=== PATIENT | male | born 1985 | race Caucasian/White ===

== ENCOUNTER 2017-01-04 21:26 | Emergency (ER) | END 2017-01-05 00:18 | disposition home or self-care (01) | DX: J02.9 Acute pharyngitis, unspecified (principal); R10.31 Right lower quadrant pain; R11.2 Nausea with vomiting, unspecified | CPT/HCPCS: 36415; 74177; 80053; 81001; 83690; 85025; 87880; 96374; 96375; 99285; J1885; J2270; J2405; J7030; Q9967 ==